=== PATIENT | female | born 1965 | race Caucasian/White ===

== ENCOUNTER → 2018-04-19 | Outpatient (CLI) | payer OTHER ==
--- NOTE | 2018-04-19 16:03 | Diagnostic Imaging Report ---
MRI SPINE CERVICAL WO HISTORY: Neck pain, arm numbness COMPARISON: None. TECHNIQUE: Sagittal T1, sagittal T2, sagittal inversion recovery, axial T2/GRE, and axial T1 weighted MR images of the cervical spine were obtained without intravenous contrast. DISCUSSION: Alignment: Straightening of the cervical lordosis. No scoliosis. Vertebrae: Small nodular T2/STIR hyperintense lesion in the T4 vertebral body is likely a benign hemangioma. Otherwise, no definite evidence for fractures, or neoplasm. Cervicomedullary junction: No abnormalities. Spinal cord: Normal in signal and morphology from the foramen magnum through T4-T5. Soft tissues: The thyroid gland is mildly enlarged and mildly heterogeneous. Mild to moderate multilevel disc degeneration is most prominent at C5-C6. There are nonspecific mild inflammatory endplate changes at C5-C6. Mild atlantoaxial arthrosis is present as well. C2-C3: Patent canal and foramina. C3-C4: Mild left foraminal stenosis due to uncovertebral and facet arthrosis. There is mildly prominent left C3-C4 facet arthrosis. No significant canal or right foraminal stenosis. C4-C5: Patent canal and foramina. C5-C6: Mild canal stenosis due to the disc osteophyte complex and ligamentum flavum thickening. Mild to moderate right and mild left foraminal stenoses due to uncovertebral and facet arthrosis. C6-C7: Mild canal stenosis due to posterior disc osteophyte complex and ligamentum flavum thickening. Mild right and mild to moderate left foraminal stenoses due to uncovertebral and facet arthrosis. C7-T1: Patent canal and foramina. IMPRESSION: 1. Mild to moderate multilevel disc degeneration, most prominent at C5-C6. Nonspecific mild inflammatory endplate changes at C5-C6. 2. Mild degenerative canal stenoses at C5-C6 and C6-C7. 3. Multilevel degenerative foraminal stenoses - mild to moderate on the right at C5-C6 and on the left at C6-C7. Signed by: Dr. Aaron Castillo M.D. on 04/19/2018 4:00 PM
--- NOTE | 2018-04-19 16:10 | Diagnostic Imaging Report ---
MRI SPINE LUMBAR WO HISTORY: Fall, osteoarthritis of the spine COMPARISON: None. TECHNIQUE: Sagittal T1, sagittal T2, sagittal STIR, axial T2, coronal T2, and axial proton density weighted images of the lumbar spine were obtained without contrast. DISCUSSION: Number of non-rib bearing lumbar vertebral bodies: 5. Alignment: Normal lordosis. No scoliosis. Vertebrae: A few scattered small nodular T1/T2 hyperintense vertebral body lesions are likely benign hemangiomas. Otherwise, no definite evidence for fractures, or neoplasm. Conus medullaris: Normal, ends at T12-L1. Cauda equina: No masses or arachnoiditis. Posterior paraspinal muscles: Well preserved. No signal abnormalities. Soft tissues: No signal abnormalities. Mild multilevel disc degeneration is most prominent at L5-S1. T12-L1: Patent canal and foramina. L1-L2: Disc bulge without significant canal or foraminal stenosis. L2-L3: Patent canal and foramina. L3-L4: Mild canal stenosis due to disc bulge and ligamentum flavum thickening. No significant foraminal stenosis. L4-L5: Grade 1 anterolisthesis of L4 on L5 with mild to moderate bilateral L4-L5 facet arthrosis. There is periarticular edema along the bilateral L4-L5 facet joints. Mild to moderate canal stenosis due to uncovered disc bulge and ligamentum flavum thickening. Both lateral recesses are slightly effaced. Mild bilateral foraminal stenoses due to uncovered disc bulge and facet arthrosis. L5-S1: Mild to moderate bilateral foraminal stenoses due to disc bulge and facet arthrosis. No significant canal stenosis. IMPRESSION: 1. Mild multilevel disc degeneration, most prominent at L5-S1. 2. Grade 1 anterolisthesis of L4 on L5 with mild to moderate bilateral L4-L5 facet arthrosis. Suspected bilateral L4-L5 facet synovitis. 3. Mild to moderate L4-L5 and mild L3-L4 degenerative canal stenoses. 4. Bilateral mild to moderate L5-S1 and mild L4-L5 degenerative foraminal stenoses. Signed by: Dr. Aaron Castillo M.D. on 04/19/2018 4:07 PM
== END ==
LOC: MRI 14:35
PROVIDERS: ATTEND Family Medicine
DX: M47.26 Other spondylosis with radiculopathy, lumbar region (principal)
CPT/HCPCS: 72141; 72148